=== PATIENT | female | born 1975 | race Caucasian/White ===

== ENCOUNTER 2017-11-20 13:17 | Inpatient (IN) ==
[2017-11-20] MEDS ORDERED: LORazepam 1 MG Tablet PO PRN (18:08)
[2017-11-20] MEDS ORDERED: Aluminum/Magnesium/Simethacone Susp 30 ML UDC PO PRN (18:08)
[2017-11-20] MEDS: amLODIPine 10 MG Tablet PO SCH (18:25)
[2017-11-21] MEDS: amLODIPine 10 MG Tablet PO SCH (08:43)
[2017-11-21 09:43] LABS: Anion Gap 11 meq/L (5-15); Blood Urea Nitrogen 5 mg/dL (7-18); Calcium 9.6 mg/dL (8.5-10.1); Carbon Dioxide 24.7 meq/L (21.0-32.0); Chloride 102 meq/L (98-107); Glomerular Filtration Rate Greater Than 89 mL/min (>89); Glucose,Random 147 mg/dL (74-106); Potassium 3.8 meq/L (3.5-5.1); Sodium 138 meq/L (136-145)
[2017-11-21 09:45] LABS: Cholesterol 187 mg/dL (120-200)
[2017-11-21 09:54] LABS: Chol/HDL Ratio 2.85 Ratio; HDL Cholesterol 65.6 mg/dL (40.0-60.0); LDL Cholesterol,Calculated 100 mg/dL (0-99); Triglycerides 106 mg/dL (42-150)
--- NOTE | 2017-11-21 10:52 | P.HPPSY ---
Provisional Diagnosis Admission Date: November 20, 2017 15:42 [place] [facility].: 1. History of anxiety and depression, presently stable [place] [facility].: Deferred Competence Certification of Person's Competence To Provide Express and Informed Consent I have personally examined Ruth Grady, a person being served at [facility] on, November 21, 2017 1052. Express and informed consent means consent voluntarily given in writing, by a competent person, after sufficient explanation and disclosure of the subject matter involved to enable the person to make a knowing and willful decision without any element of force, fraud, deceit, duress, or other form of constraint or coercion. This person is 18 years of age or older, is not now known to be incompetent to consent to treatment with a guardian advocate, and does not have a health care surrogate or proxy currently making medical treatment decisions. I have found this person to be one of the following: [x] Competent to provide express and informed consent, as defined above, for voluntary admission to this facility and is competent to provide express and informed consent for treatment. He/she has the consistent capacity to make well reasoned, willful, and knowing decisions concerning his or her medical or mental health treatment. The person fully and consistently understands the purpose of the admission for examination/placement and is fully capable of personally exercising all rights assured [place] Incompetent to provide express and informed consent to voluntary admission, and this is incompetent to provide express and informed consent to treatment. The person must be transferred to involuntary status and a petition for a guardian advocate filed with the Circuit Court. [] Refusing to provide express and informed consent to voluntary admission but is competent to provide express and informed consent for treatment. The person must be discharged or transferred to involuntary status. Form shall be completed within 24 hours of a person's arrival at the receiving facility and filed in the clinical record of each person: 1. Admitted on a voluntary basis 2. Permitted to provide express and informed consent to his/her own treatment 3. Allowed to transfer from involuntary to voluntary status 4. Prior to permitting a person to consent to his or her own treatment after having been previously found incompetent to consent to treatment. History of Present Illness Capacity: Has capacity Chief Complaint: Seroquel ingestion History of Present Illness: Ms. Grady is a 42 year-old female with a reported history of anxiety and depression who presents in transfer from [facility] under a Franklin Act by [facility] alleging Seroquel overdose. Documentation from outside hospital reviewed. Patient was apparently brought in by EMS, having been discovered unresponsive by her boyfriend. She was intubated and admitted to the ICU at [facility] for management of ingestion, although I do not see that the quantity of medication ingested was ascertained. I do see notation that any empty bottle of Seroquel was found near patient. I do not see a psychiatric consultation from [facility]. Reviewing our electronic medical record, I note that the patient was seen in consultation by the psychiatric nurse practitioner in the ED in 2016. Patient seen and examined with nurse and counselor. Chart reviewed. Case discussed with nursing staff. No behavioral issues noted overnight. No evidence of any suicidality or homicidality while the patient has been under observation on the inpatient unit. On my examination today, the patient reports that her presenting Seroquel ingestion was accidental. She says that her outpatient psychiatrist was providing her with Seroquel 400 mg at bedtime, but the patient found this excessively sedating and so the dose was recently decreased to 200 mg at bedtime. However, the patient found that she was unable to get good sleep with the lower dose and so tried taking 3 tablets of Seroquel 200 mg, i.e. 600 mg total. She says that this was the extent of her ingestion. She does not report any coingestions. She denies that Seroquel ingestion was suicidal in nature. She disputes that she was as altered as alleged in documentation from outside hospital. Indeed, she reports that she was awake and struggling while she was being intubated and points to bruises on her right forearm as evidence of this struggle. She denies any suicidal or homicidal ideation, intent or plan at this time and contracts for safety. She says that she wants to live for herself and for her children. She does note that one of her sons is struggling with cancer, but patient seems to be bearing up under this stressor well. I can elicit no depressive or hypomanic/manic symptoms. She denies any audiovisual hallucinations. I can elicit no delusional material. There is no evidence of impairment in reality construction. No significant anxiety. The remainder of the psychiatric ROS is negative. No acute physical complaints. The patient is requesting discharge from the inpatient psychiatric unit today. With the patient's permission, I have obtained collateral information from patient's outpatient psychiatrist, Dr. Kim. Dr. Kim notes that she has cared for the patient for many years and has never known her to engage in any sort of suicidal behavior while under her care. Patient has never been hospitalized while under her care. She does note that the patient has chronic psychosocial stressors including issues with significant other and children, but she gives no indication that these issues have been more severe of late. Counselor has obtained collateral information from the patient's boyfriend, Anurag. I have discussed this collateral with counselor. Anurag reportedly relates that he has found a full bottle of Seroquel. Anurag reportedly does not believe presenting ingestion was suicidal in nature. Anurag is reportedly advocating for patient's discharge home today. I have instructed counselor to instruct Anurag to secure the home environment of potential means of harm to self or others including but not limited to guns, knives and medications out of an abundance of caution. Past psychiatric history: The patient reports a history of anxiety and depression. She follows outpatient with Dr. Kim. She denies any history of psychiatric admissions, although Dr. Kim did note that patient may have had a remote psychiatric admission prior to coming under her care. Patient denies any history of suicide attempts or nonsuicidal self-injurious behavior. Family history: The patient denies any family history of mental illness or suicide. Chemical dependency history: The patient denies any abuse of drugs or alcohol. Social history: The patient resides with her boyfriend. She has 4 children and 3 grandchildren. 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 She denies any history. Denies any access to guns or firearms. Denies any legal history. Denies any history of trauma. She has a Spiritism and volunteers in her [employer]. Past medical history: Includes a history of low back pain, mitral valve prolapse , asthma and migraine headache. - Inpatient Certification Plans for Post Hospital Care: Home Review of Systems All other systems reviewed negative except as stated in HPI [facility] - Medical History Medical History: Medical History (Last Updated 11/20/17 @ 16:04 by Tania Sanchez RN) Mitral valve prolapse Murmur - Surgical History Surgical History: Surgical History (Last Updated 11/20/17 @ 16:04 by Tania Sanchez RN) H/O hernia repair Quality Measures - Patient Strengths Patient's strengths (minimum of 2): Attending to basic needs. Verbally fluent. Medications and Allergies Active Medications: Active Medications Al Hydrox/Mg Hydrox/Simethicone (Mag-Al Plus Susp Liq) 30 ml PO Q6H PRN PRN Reason: DYSPEPSIA Al Hydroxide/Mg Hydroxide (Milk Of Magnesia Liq) 30 ml PO Q12H PRN PRN Reason: Mild Constipation Albuterol (Albuterol Neb (Prn)) 2.5 mg INH Q4HR NEB PRN PRN Reason: Shortness Of Breath Amlodipine Besylate (Norvasc) 10 mg PO DAILY [facility] Last Admin: 11/21/17 08:43 Dose: 10 mg Diphenhydramine HCl (Benadryl) 50 mg PO HS PRN PRN Reason: INSOMNIA Lorazepam (Ativan) 1 mg PO Q6H PRN PRN Reason: MODERATE TO SEVERE ANXIETY Nicotine (Habitrol 7 Mg Patch.24 Hr) 1 patch T-DERMAL DAILY [facility] Last Admin: 11/21/17 08:43 Dose: 1 patch Patch Removal (Remove Old Patch) 0 each T-DERMAL DAILY [facility] Allergies Allergy/AdvReac Type Severity Reaction Status Date / Time No Known Allergies Allergy Uncoded 06/08/15 08:38 Home Medications Medication Instructions Recorded Confirmed Type RX: albuterol sulfate 2.5 mg INHALATION Q4H PRN 11/20/17 11/20/17 History RX: diazepam 10 mg PO TID PRN 11/20/17 11/20/17 History RX: quetiapine 400 mg PO BID 11/20/17 11/20/17 History RX: sertraline 100 mg PO DAILY 11/20/17 11/20/17 History amlodipine [Norvasc] 10 mg PO DAILY 11/20/17 11/20/17 History carisoprodol [Soma] 350 mg PO TID 11/20/17 11/20/17 History lamotrigine [Lamictal] 200 mg PO DAILY 11/20/17 11/20/17 History meloxicam [Mobic] 15 mg PO DAILY 11/20/17 11/20/17 History naproxen [Naprosyn] 500 mg PO BID 11/20/17 11/20/17 History Results - Labs CBC & Chem 7: 11/21/17 08:30 Labs: Laboratory Results - last 24 hr 11/21/17 08:30 Sodium 138 Potassium 3.8 Chloride 102 Carbon Dioxide 24.7 Anion Gap 11 BUN 5 L Creatinine 0.60 Estimated GFR Greater than 89 Random Glucose 147 H Calcium 9.6 Triglycerides 106 Cholesterol 187 LDL Cholesterol, Calc 100 H HDL Cholesterol 65.6 H Cholesterol/HDL Ratio 2.85 TSH 1.350 Laboratories/studies from outside hospital reviewed. These are largely from . CBC reveals mild leukocytosis. BMP reveals mild hyperglycemia. Urine toxicology is positive for tricyclics and benzodiazepines. Head CT was read as no acute process. Exam Vital signs: Vital Signs 11/20/17 15:55 11/21/17 05:45 Temperature 98.6 F 98.2 F Pulse Rate 115 H 100 H Respiratory Rate 20 16 Blood Pressure 181/95 H 132/63 Pulse Oximetry 98 98 Intake & Output 11/20/17 11/21/17 11/21/17 18:59 06:59 18:59 Weight 140 kg Other: Weight On Admission 140 kg Narrative: Physical exam completed by medical team at outside hospital. On my examination today, the patient appears to be in no acute physical distress. No motor abnormalities noted. No signs of intoxication or withdrawal noted. Labs and vital signs reviewed. Mental Status Examination Appearance: Appropriate Consciousness: Alert Orientation: x4 Motor Activity: Other (No motor abnormalities noted) Speech: Unremarkable Language: Adequate Fund of Knowledge: Adequate Attention and Concentration: Adequate Memory: Unremarkable (Grossly intact on clinical exam) Mood: Appropriate Affect: Appropriate Thought Process & Associations: Intact, Logical, Goal directed, Linear Thought Content: Appropriate Hallucination Type: None Delusion Type: None Suicidal Ideation: No Suicidal Plan: No Suicidal Intention: No Homicidal Ideation: No Homicidal Plan: No Homicidal Intention: No Mental Status Exam Remarks: Insight and judgment seem at least fair. Assessment and Plan - Assessment (1) Anxiety and depression Code(s): F41.9 - Anxiety disorder, unspecified; F32.9 - Major depressive disorder, single episode, unspecified Status: Chronic - Plan Plan: 42-year-old female with psychiatric history as detailed above who presents in transfer from outside hospital under a Franklin act following Seroquel ingestion. On my examination today, the patient denies suicidal ingestion. She denies any suicidal or homicidal ideation at this time. There is no evidence of unstable mental illness as defined under the Franklin act in this patient at this time. There is no evidence of self-care deficit. Collateral information from patient' s outpatient psychiatrist indicates that the patient has no previous history of self-harm. Collateral information obtained by the counselor from patient's boyfriend places magnitude of ingestion in question and is otherwise reassuring. Synthesizing this information, I solid fiber paster operator that the patient does not meet the Franklin Act criteria. She is requesting discharge from the inpatient psychiatric unit today, and I have no basis to retain her over her objection. I have recommended voluntary observation on the inpatient unit, but she has declined. I will discharge the patient home today in fair condition. Patient is to resume home psychotropic regimen as prescribed and follow up with Dr. Kim. Patient is also to follow up with primary care. I have counseled the patient to abstain from any substances of abuse. Importance of taking medications only as prescribed stressed the patient. I have counseled the patient regarding warning signs for need to return to the psychiatric emergency room as part of a general safety plan. I have provided no prescriptions on discharge. This note serves also as my discharge summary. Justification for Continued Inpatient Stay: N/A.
[2017-11-21 13:09] LABS: Hemoglobin A1c 5.2 % (4.3-6.0)
== END 2017-11-21 16:10 | disposition home or self-care (01) ==
LOC: H270 15:42
PROVIDERS: ADMIT Psychiatry & Neurology Psychiatry; ATTEND Psychiatry & Neurology Psychiatry
DX: T43.591A Poisoning by other antipsychotics and neuroleptics, accidental (unintentional), initial encounter; F32.9 Major depressive disorder, single episode, unspecified; F41.9 Anxiety disorder, unspecified
CPT/HCPCS: 80048; 80061; 83036; 84443